=== PATIENT | female | born 1940 | race Caucasian/White ===

== ENCOUNTER 2016-10-16 00:30 | Emergency (ER) | payer MEDICARE ==
[2016-10-16] MEDS ORDERED: MORPHINE 2 MG/ML 1ML SYRINGE As Ordered ONE (01:13)
--- NOTE | 2016-10-16 02:20 | REPUSA ---
CLINICAL HISTORY: Head trauma. TECHNIQUE: Multiple axial brain CT scan sections were obtained from base to vertex without contrast a dministration. COMMENTS: There is no evidence of skull fracture. The study shows normal configuration of sella turcica. There are no intra or extra-axial collections. There is no mass effect or midline shift. There is no evidence of hematoma formation. No hydrocephal us is present. No abnormal calcifications are noted. No significant abnormalities are seen either in the posterior fossa or supratentorial compartment. Air-fluid levels in the maxillary sinuses. Bilateral subcutaneous emphysema of the vertex. IMPRESSION: No evidence of acute intracranial pathology. No intracranial hemorrhage or skull fracture. Bilateral subcutaneous emphysema of the vertex. Air-fluid levels in the maxillary sinuses. Thank you for your kind referral of this patient.
--- NOTE | 2016-10-16 02:30 | REPUSA ---
CLINICAL HISTORY: Neck pain. TECHNIQUE: Multiple axial images were obtained through the cervical spine. Images were also reconstru cted in coronal and sagittal planes. The study was performed without IV contrast. COMMENTS: There is no fracture or spondylolisthesis visualized. The paraspinal soft tissues are unremarkable. T here are no lytic or blastic lesions. Straightening of cervical lordosis is seen, suggesting muscular spasm. There is evidence of minimal m ultilevel disk disease, demonstrated by minimal osteophytosis and endplate sclerosis. No significant disk herniation is noted at any level. Canal and foramina remain patent. IMPRESSION: 1. No fracture or spondylolisthesis. 2. Straightening of cervical lordosis is seen, suggesting muscular spasm. 3. Minimal multilevel spondylosis. Thank you for your kind referral of this patient.
--- NOTE | 2016-10-16 02:40 | REPUSA ---
CLINICAL HISTORY: Back pain. TECHNIQUE: Multiple axial images were obtained through the L1-L2, L2-L3, L3-L4, L4-L5 and L5-S1 inter spaces. Images were also reconstructed in coronal and sagittal planes. COMMENTS: There is no fracture visualized. The paraspinal soft tissues are unremarkable. There are no lytic or blastic lesions. Grade 1 anterolisthesis of L4 on L5. There is evidence of multilevel disk disease, demonstrated by osteophytosis ad endplate sclerosis. Evaluation of individual levels reveals the following: At L4-L5 and L5-S1, broad-based disk protrusion in conjunction with hypertrophic facet disease result s in moderate bilateral foraminal narrowing. Canal is mildly stenotic. At L3-L4, broad-based disk bulge, results in mild bilateral foraminal narrowing. Canal is patent. L1-L2 and L2-L3 levels are unremarkable. IMPRESSION: 1. No fracture or spondylolisthesis. 2. At L4-L5 and L5-S1, broad-based disk protrusion in conjunction with hypertrophic facet disease re sults in moderate bilateral foraminal narrowing. . Canal is mildly stenotic. 3. At L3-L4, broad-based disk bulge, results in mild bilateral foraminal narrowing. Canal is patent. Thank you for your kind referral of this patient.
[2016-10-16] MEDS ORDERED: ADACEL/BOOSTRIX VACCINE (DIPHTH/PERTUSS/ACELL/TETANUS)0.5ML SYR (90715) As Ordered ONE (02:41)
[2016-10-16] MEDS ORDERED: MORPHINE 4 MG/ML 1ML SYRINGE As Ordered ONE (03:03)
[2016-10-16] MEDS ORDERED: DERMABOND TOPICAL SKIN ADHESIVE As Ordered ONE ×2 (03:15→03:38)
--- NOTE | 2016-10-16 04:04 | EDDOCDS ---
Nurse's Notes [facility] Name: Francesca Lu Age: 76 yrs Sex: Female : 1940 Arrival Date: 10/16/2016 Time: 00:30 Bed 6 Private MD: Diagnosis: Laceration without foreign body of scalp;Contusion of lower back and pelvis-with hematoma Presentation: 10/16 00:33 Presenting complaint: EMS states: Pt was walking up a set of 3 steps and fell up them js15 and then fell backwards and hit her head on a wooden dresser; laceration to back of head and swelling to right hip; pt awake and alert on EMS arrival; family states that there was no LOC but pt was briefly dazed after fall. Suicide/Homicide risk assessment- the patient denies having any suicidal and/or homicidal ideations and does not present with any other emotional, behavioral or mental health complaints. 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 Transition of care: patient was not received from another setting of care. Care prior to arrival: Saline lock initiated. Glucose check. FSBS 114. 00:33 Acuity: KRISTIAN Level 3 js15 00:33 Method Of Arrival: Ambulance js15 00:40 Adult Sepsis Screening: The patient does not have new or worsening altered mentation. js15 Patient's respiratory rate is less than 22. Systolic blood pressure is greater than 100. Patient has a qSOFA score of 0- Negative Sepsis Screen. Triage Assessment: 00:40 General: Appears in no apparent distress, Behavior is appropriate for age, cooperative. js15 Pain: Location: scalp and back Pain currently is 10 out of 10 on a pain scale. The patient is triaged at the bedside. See Assessment in Nurses Notes section of ED record. Neurological: Level of Consciousness is awake, alert, obeys commands, Oriented to person, place, time. Cardiovascular: Rhythm is regular. Respiratory: Airway is patent Respiratory effort is even, unlabored, Respiratory pattern is regular, symmetrical. Derm: Skin is pink, warm & dry. Bruising that is bright red, on right scapular area and right subscapular area. Musculoskeletal: Reports pain in back. Historical: - Allergies: Compazine; halscion; - Home Meds: 1. Prozac 20 mg Oral cap 1 cap once daily 2. lorazepam 0.5 mg Oral tab 1 tab 3 times per day 3. eszopiclone 3 mg oral tab 1 tab once daily 4. lovastatin 40 mg Oral tab 1 tab once daily 5. omeprazole 20 mg Oral cpDR 1 cap 2 times per day 6. Synthroid 88 mcg Oral tab 1 tab once daily 7. breo ellipta inhaler Unknown daily 8. spironolactone 100 mg Oral tab 1 tab 2 times per day 9. montelukast 10 mg oral tab 1 tab once daily 10. Senokot 8.6 mg Oral tab 1 tabs twice daily - PMHx: Hypothyroidism; GERD; High Cholesterol; Anxiety; Depression; Migraines; - PSHx: Tubal ligation; Hysterectomy; Bunion Surgery; - Social history: Smoking status: Patient states former smoker of tobacco. No barriers to communication noted, The patient speaks fluent Sami, Speaks appropriately for age. - Family history: Not pertinent. - : The pt / caregiver states he / she is not on anticoagulants. Home medication list is obtained from the patient. - Exposure Risk Screening:: None identified. Screenin:45 Screening information is obtained from the patient. Fall risk: At risk due to prior 15 history of falls, The following interventions are performed due to a positive Fall Risk Screen: side rails upx2, bed in low position, call light in reach, family at bedside. Assistance ADL's: requires no assistance with activities of daily living. Abuse/DV Screen: The patient / caregiver reports he/she is: not in a situation that causes fear, pain or injury. Nutritional screening: No deficits noted. Advance Directives: There is no active DNR order. home support is adequate. Assessment: 00:40 General: see triage note. js15 01:40 Reassessment: Patient appears in no apparent distress at this time. Patient states js15 feeling better. Pt resting on stretcher, reports improvement in pain, 4/10; respirations even and unlabored; skin pink, warm, dry. 02:40 Reassessment: Patient appears in no apparent distress at this time. Pt resting on js15 stretcher talking with at bedside; respirations even and unlabored; reports pain in back 9/10; provider notified. 03:30 General: Appears in no apparent distress, comfortable, Behavior is appropriate for age, js15 cooperative. Pain: Location: back. Neurological: Level of Consciousness is awake, alert, obeys commands, Oriented to person, place, time. Respiratory: Airway is patent Respiratory effort is even, unlabored, Respiratory pattern is regular, symmetrical. Derm: Skin is pink, warm & dry. Vital Signs: 00:37 BP 132 / 65; Pulse 107; Resp 18 S; Temp 98.4(O); Pulse Ox 91% on R/A; Weight 45.36 kg; ajs Height 5 ft. 0 in. (152.40 cm); Pain 10/10; 00:45 BP 129 / 61 (auto/); js15 00:46 Pulse 105 MON; Pulse Ox 92% ; js15 01:00 BP 139 / 64 (auto/); js15 01:01 Pulse 104 MON; Pulse Ox 94% ; js15 01:15 BP 123 / 63 (auto/); js15 01:16 Pulse 103 MON; Pulse Ox 92% ; js15 01:30 BP 133 / 62 (auto/); js15 01:31 Pulse 103 MON; Pulse Ox 91% ; js15 02:01 BP 117 / 69 (auto/); js15 02:03 Pulse 100 MON; Pulse Ox 93% ; js15 02:16 BP 130 / 67 (auto/); js15 02:16 Pulse 98 MON; Pulse Ox 92% ; js15 02:31 BP 128 / 69 (auto/); js15 02:31 Pulse 100 MON; Pulse Ox 93% ; js15 02:46 BP 123 / 65 (auto/); js15 02:46 Pulse 100 MON; Pulse Ox 92% ; js15 03:01 BP 116 / 64 (auto/); js15 03:01 Pulse 96 MON; Pulse Ox 92% ; js15 03:16 BP 132 / 67 (auto/); js15 03:16 Pulse 96 MON; Pulse Ox 92% ; js15 03:31 BP 119 / 64 (auto/); js15 03:31 Pulse 96 MON; Pulse Ox 92% ; js15 03:43 Pulse 98 MON; Resp 20; Temp 97.9; Pulse Ox 92% on R/A; Pain 4/10; js15 03:46 BP 127 / 66 (auto/); js15 00:37 Body Mass Index 19.53 (45.36 kg, 152.40 cm) [facility] Vitals: 00:40 Log In Time N/A - ambulance arrival. js15 ED Course: 00:32 Patient visited by Brisa Buenrostro, Log Check Scaler. ml3 00:32 Vladimir Salazar DO is Attending Physician. cs11 00:32 Patient moved to Waiting ml3 00:32 Patient moved to 1 ml3 00:33 Patient visited by Vladimir Salazar DO. cs11 00:36 Triage Initiated js15 00:45 Maintain field IV. Dressing intact. Good blood return noted. Site clean & dry. Gauge & js15 site: 18 g R hand. 01:00 The patient / caregiver is instructed regarding the plan of care and ED course. js15 01:08 Patient visited by Antonia Baig,ABDIRIZAK. js15 01:53 [facility] Payment Agreement was scanned into [employer] and attached to record. [facility] 01:59 Patient moved to 6 js15 02:22 Patient visited by Antonia Baig RN. js15 02:22 CT Head Without Contrast Returned. EDMS 02:54 CT Spine,Cervical W/o Contrast Returned. EDMS 02:54 CT Spine, Lumbar W/o Contrast Returned. EDMS 03:15 Assist provider with laceration repair using Dermabond. Performed by Vladimir Salazar DO js15 Set up tray. Patient tolerated well. 03:24 Patient visited by Antnoia Baig RN. 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 Exp: 11/30/2018. Lot #: [id number]. } Route: IM; Site: left deltoid; 03:10 Drug: morphine 4 mg [morphine 4 mg/mL intravenous cartridge (1 mL)] Route: IVP; Site: [facility] right hand; Order Results: Radiology Order: CT Head Without Contrast Test: CT Head Without Contrast REASON FOR EXAMINATION: Trauma; ; CLINICAL HISTORY: Head trauma.; TECHNIQUE: Multiple axial brain CT scan sections were obtained from base to vertex without contrast a; dministration.; COMMENTS:; There is no evidence of skull fracture.; The study shows normal configuration of sella turcica. There are no intra or extra-axial collections.; There is no mass effect or midline shift. There is no evidence of hematoma formation. No hydrocephal; us is present. No abnormal calcifications are noted.; No significant abnormalities are seen either in the posterior fossa or supratentorial compartment.; Air-fluid levels in the maxillary sinuses.; Bilateral subcutaneous emphysema of the vertex.; IMPRESSION:; No evidence of acute intracranial pathology. No intracranial hemorrhage or skull fracture.; Bilateral subcutaneous emphysema of the vertex.; Air-fluid levels in the maxillary sinuses.; Thank you for your kind referral of this patient.; ; Radiology Order: CT Spine,Cervical W/o Contrast Test: CT Spine,Cervical W/o Contrast REASON FOR EXAMINATION: Trauma; ; CLINICAL HISTORY: Neck pain.; TECHNIQUE: Multiple axial images were obtained through the cervical spine. Images were also reconstru; cted in coronal and sagittal planes. The study was performed without IV contrast.; COMMENTS:; There is no fracture or spondylolisthesis visualized. The paraspinal soft tissues are unremarkable. T; here are no lytic or blastic lesions.; Straightening of cervical lordosis is seen, suggesting muscular spasm. There is evidence of minimal m; ultilevel disk disease, demonstrated by minimal osteophytosis and endplate sclerosis.; No significant disk herniation is noted at any level. Canal and foramina remain patent.; IMPRESSION:; 1. No fracture or spondylolisthesis.; 2. Straightening of cervical lordosis is seen, suggesting muscular spasm.; 3. Minimal multilevel spondylosis.; Thank you for your kind referral of this patient.; ; Radiology Order: CT Spine, Lumbar W/o Contrast Test: CT Spine, Lumbar W/o Contrast REASON FOR EXAMINATION: Trauma; ; CLINICAL HISTORY: Back pain.; TECHNIQUE: Multiple axial images were obtained through the L1-L2, L2-L3, L3-L4, L4-L5 and L5-S1 inter; spaces. Images were also reconstructed in coronal and sagittal planes.; COMMENTS:; There is no fracture visualized. The paraspinal soft tissues are unremarkable. There are no lytic or; blastic lesions. Grade 1 anterolisthesis of L4 on L5.; There is evidence of multilevel disk disease, demonstrated by osteophytosis ad endplate sclerosis.; Evaluation of individual levels reveals the following:; At L4-L5 and L5-S1, broad-based disk protrusion in conjunction with hypertrophic facet disease result; s in moderate bilateral foraminal narrowing. Canal is mildly stenotic.; At L3-L4, broad-based disk bulge, results in mild bilateral foraminal narrowing. Canal is patent.; L1-L2 and L2-L3 levels are unremarkable.; IMPRESSION:; 1. No fracture or spondylolisthesis.; 2. At L4-L5 and L5-S1, broad-based disk protrusion in conjunction with hypertrophic facet disease re; sults in moderate bilateral foraminal narrowing. . Canal is mildly stenotic.; 3. At L3-L4, broad-based disk bulge, results in mild bilateral foraminal narrowing. Canal is patent.; Thank you for your kind referral of this patient.; ; Outcome: 03:30 Discharge ordered by Provider. cs11 03:35 CT Study completed. js15 04:03 Discharge Assessment: Patient awake, alert and oriented x 3. No cognitive and/or js15 functional deficits noted. Patient verbalized understanding of disposition instructions. patient administered narcotics - yes. Pt provided with safe discharge. The following High Risk Discharge criteria are identified: None. Discharged to home via wheelchair, with significant other. Condition: stable. Discharge instructions given to patient, significant other, Instructed on discharge instructions, follow up and referral plans. medication usage, no driving heavy equipment, wound care, Demonstrated understanding of instructions, medications, wound care Pt was receptive of discharge instructions/ teaching. Prescriptions given X 1. Property :Personal belongings accompany Pt. 04:03 Patient left the ED. js15 Signatures: Dispatcher [employer] EDMS Brisa Buenrostro, Log Check Scaler Unit ml3 Cherise Allen Craig, DO DO cs11 Mary Ellen Hwang RN RN ko2 Ami Santos Julia,RN RN js15 RIYA
--- NOTE | 2016-10-16 04:04 | EDDOCDS ---
Physician Documentation [facility] Name: Francesca Lu Age: 76 yrs Sex: Female : 1940 Arrival Date: 10/16/2016 Time: 00:30 Bed 6 Private MD: Disposition: 10/16/16 03:30 Discharged to Home/Self Care. Impression: Laceration without foreign body of scalp, Contusion of lower back and pelvis - with hematoma. - Condition is Stable. - Discharge Instructions: Stitches, [place], or Adhesive Wound Closure. - Prescriptions for Tramadol 50 mg Oral Tablet - take 1 tablet by ORAL route 4 times per day As needed MDD: 4 tabs; 20 tablet. - Medication Reconciliation, Local Pharmacy Hours form. - Follow up: Private Physician; When: Call to arrange an appointment; Reason: Recheck today's complaints. - Problem is new. - Symptoms have improved. Historical: - Allergies: Compazine; halscion; - Home Meds: 1. Prozac 20 mg Oral cap 1 cap once daily 2. lorazepam 0.5 mg Oral tab 1 tab 3 times per day 3. eszopiclone 3 mg oral tab 1 tab once daily 4. lovastatin 40 mg Oral tab 1 tab once daily 5. omeprazole 20 mg Oral cpDR 1 cap 2 times per day 6. Synthroid 88 mcg Oral tab 1 tab once daily 7. breo ellipta inhaler Unknown daily 8. spironolactone 100 mg Oral tab 1 tab 2 times per day 9. montelukast 10 mg oral tab 1 tab once daily 10. Senokot 8.6 mg Oral tab 1 tabs twice daily - PMHx: Hypothyroidism; GERD; High Cholesterol; Anxiety; Depression; Migraines; - PSHx: Tubal ligation; Hysterectomy; Bunion Surgery; - Social history: Smoking status: Patient states former smoker of tobacco. No barriers to communication noted, The patient speaks fluent Upper Sorbian, Speaks appropriately for age. - Family history: Not pertinent. - : The pt / caregiver states he / she is not on anticoagulants. Home medication list is obtained from the patient. - Exposure Risk Screening:: None identified. Vital Signs: 10/16 00:37 BP 132 / 65; Pulse 107; Resp 18 S; Temp 98.4(O); Pulse Ox 91% on R/A; Weight 45.36 kg / ajs 100 lbs; Height 5 ft. 0 in. (152.40 cm); Pain 10/10; 00:45 BP 129 / 61 (auto/); js15 00:46 Pulse 105 MON; Pulse Ox 92% ; js15 01:00 BP 139 / 64 (auto/); js15 01:01 Pulse 104 MON; Pulse Ox 94% ; js15 01:15 BP 123 / 63 (auto/); js15 01:16 Pulse 103 MON; Pulse Ox 92% ; js15 01:30 BP 133 / 62 (auto/); js15 01:31 Pulse 103 MON; Pulse Ox 91% ; js15 02:01 BP 117 / 69 (auto/); js15 02:03 Pulse 100 MON; Pulse Ox 93% ; js15 02:16 BP 130 / 67 (auto/); js15 02:16 Pulse 98 MON; Pulse Ox 92% ; js15 02:31 BP 128 / 69 (auto/); js15 02:31 Pulse 100 MON; Pulse Ox 93% ; js15 02:46 BP 123 / 65 (auto/); js15 02:46 Pulse 100 MON; Pulse Ox 92% ; js15 03:01 BP 116 / 64 (auto/); js15 03:01 Pulse 96 MON; Pulse Ox 92% ; js15 03:16 BP 132 / 67 (auto/); js15 03:16 Pulse 96 MON; Pulse Ox 92% ; js15 03:31 BP 119 / 64 (auto/); js15 03:31 Pulse 96 MON; Pulse Ox 92% ; js15 03:43 Pulse 98 MON; Resp 20; Temp 97.9; Pulse Ox 92% on R/A; Pain 4/10; js15 03:46 BP 127 / 66 (auto/); js15 00:37 Body Mass Index 19.53 (45.36 kg, 152.40 cm) [facility] Procedures: 03:31 Laceration repair:. cs11 Laceration: 03:31 Wound Repair of 2.0cm ( 0.8in ) full thickness laceration to scalp. Distal cs11 neuro/vascular/tendon intact. Wound prep: Moderate cleansing with hibiclenz by provider. Skin closed with thin layer Dermabond using Running sutures. Patient tolerated well. MDM: 00:34 CT Head Without Contrast Ordered. EDMS 00:54 CT Spine,Cervical W/o Contrast Ordered. EDMS 01:05 morphine 2 mg IVP once ordered. cs11 01:06 CT Spine, Lumbar W/o Contrast Ordered. EDMS 01:24 Tetanus- Diptheria-Acellular Pertussis 0.5 ml IM once; Routine booster 10-64yrs, >64 cs11 with child contact Ewing Omnicell ordered. 01:32 Financial registration complete. [facility] 01:32 Chest, 1 View Ordered. EDMS 01:53 [facility] Payment Agreement was scanned into [employer] and attached to record. [facility] 03:03 morphine 4 mg IVP once ordered. cs11 Administered Medications: 01:17 Drug: morphine 2 mg [morphine 2 mg/mL intravenous cartridge (1 mL)] Route: IVP; Site: js15 right hand; 02:00 Follow up: Response: Confirmed pt not driving.; Pain is decreased 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 Exp: 11/30/2018. Lot #: [id number]. } Route: IM; Site: left deltoid; 03:10 Drug: morphine 4 mg [morphine 4 mg/mL intravenous cartridge (1 mL)] Route: IVP; Site: [facility] right hand; Signatures: [facility] Vladimir Salazar DO DO 11 Mary Ellen HwangRN RN Ami Campbell [facility] Antonia Baig,ABDIRIZAK RN 15 The chart was reviewed and I authenticate all verbal orders and agree with the evaluation and treatment provided.Corrections: (The following items were deleted from the chart) 01:02 00:34 CT Neck without contrast+CT ordered. EDMS EDMS Attachments: 01:53 [facility] Payment Agreement [facility] MTDD
--- NOTE | 2016-10-16 09:24 | REP ---
Chest x-ray: Single view. History: Trauma. Comparison study July 09, 2013. Findings: EKG monitoring electrodes overlie the chest. Heart is not enlarged and is unchanged. The aorta is somewhat tortuous. Pleural angles are sharp. Pulmonary vasculature is not increased. No significant bony abnormality is seen. Impression: No active disease. Signed by Sarkis Dejesus MD 10/16/2016 02:25 P
--- NOTE | 2016-10-18 05:04 | EDDOCDS ---
Nurse's Notes [facility] Name: Francesca Lu Age: 76 yrs Sex: Female : 1940 Arrival Date: 10/16/2016 Time: 00:30 Bed 6 Private MD: Diagnosis: Laceration without foreign body of scalp;Contusion of lower back and pelvis-with hematoma Presentation: 10/16 00:33 Presenting complaint: EMS states: Pt was walking up a set of 3 steps and fell up them js15 and then fell backwards and hit her head on a wooden dresser; laceration to back of head and swelling to right hip; pt awake and alert on EMS arrival; family states that there was no LOC but pt was briefly dazed after fall. Suicide/Homicide risk assessment- the patient denies having any suicidal and/or homicidal ideations and does not present with any other emotional, behavioral or mental health complaints. 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 Transition of care: patient was not received from another setting of care. Care prior to arrival: Saline lock initiated. Glucose check. FSBS 114. 00:33 Acuity: KRISTIAN Level 3 js15 00:33 Method Of Arrival: Ambulance js15 00:40 Adult Sepsis Screening: The patient does not have new or worsening altered mentation. js15 Patient's respiratory rate is less than 22. Systolic blood pressure is greater than 100. Patient has a qSOFA score of 0- Negative Sepsis Screen. Triage Assessment: 00:40 General: Appears in no apparent distress, Behavior is appropriate for age, cooperative. js15 Pain: Location: scalp and back Pain currently is 10 out of 10 on a pain scale. The patient is triaged at the bedside. See Assessment in Nurses Notes section of ED record. Neurological: Level of Consciousness is awake, alert, obeys commands, Oriented to person, place, time. Cardiovascular: Rhythm is regular. Respiratory: Airway is patent Respiratory effort is even, unlabored, Respiratory pattern is regular, symmetrical. Derm: Skin is pink, warm & dry. Bruising that is bright red, on right scapular area and right subscapular area. Musculoskeletal: Reports pain in back. Historical: - Allergies: Compazine; halscion; - Home Meds: 1. Prozac 20 mg Oral cap 1 cap once daily 2. lorazepam 0.5 mg Oral tab 1 tab 3 times per day 3. eszopiclone 3 mg oral tab 1 tab once daily 4. lovastatin 40 mg Oral tab 1 tab once daily 5. omeprazole 20 mg Oral cpDR 1 cap 2 times per day 6. Synthroid 88 mcg Oral tab 1 tab once daily 7. breo ellipta inhaler Unknown daily 8. spironolactone 100 mg Oral tab 1 tab 2 times per day 9. montelukast 10 mg oral tab 1 tab once daily 10. Senokot 8.6 mg Oral tab 1 tabs twice daily - PMHx: Hypothyroidism; GERD; High Cholesterol; Anxiety; Depression; Migraines; - PSHx: Tubal ligation; Hysterectomy; Bunion Surgery; - Social history: Smoking status: Patient states former smoker of tobacco. No barriers to communication noted, The patient speaks fluent Slovak, Speaks appropriately for age. - Family history: Not pertinent. - : The pt / caregiver states he / she is not on anticoagulants. Home medication list is obtained from the patient. - Exposure Risk Screening:: None identified. Screenin:45 Screening information is obtained from the patient. Fall risk: At risk due to prior 15 history of falls, The following interventions are performed due to a positive Fall Risk Screen: side rails upx2, bed in low position, call light in reach, family at bedside. Assistance ADL's: requires no assistance with activities of daily living. Abuse/DV Screen: The patient / caregiver reports he/she is: not in a situation that causes fear, pain or injury. Nutritional screening: No deficits noted. Advance Directives: There is no active DNR order. home support is adequate. Assessment: 00:40 General: see triage note. js15 01:40 Reassessment: Patient appears in no apparent distress at this time. Patient states js15 feeling better. Pt resting on stretcher, reports improvement in pain, 4/10; respirations even and unlabored; skin pink, warm, dry. 02:40 Reassessment: Patient appears in no apparent distress at this time. Pt resting on js15 stretcher talking with at bedside; respirations even and unlabored; reports pain in back 9/10; provider notified. 03:30 General: Appears in no apparent distress, comfortable, Behavior is appropriate for age, js15 cooperative. Pain: Location: back. Neurological: Level of Consciousness is awake, alert, obeys commands, Oriented to person, place, time. Respiratory: Airway is patent Respiratory effort is even, unlabored, Respiratory pattern is regular, symmetrical. Derm: Skin is pink, warm & dry. Vital Signs: 00:37 BP 132 / 65; Pulse 107; Resp 18 S; Temp 98.4(O); Pulse Ox 91% on R/A; Weight 45.36 kg; ajs Height 5 ft. 0 in. (152.40 cm); Pain 10/10; 00:45 BP 129 / 61 (auto/); js15 00:46 Pulse 105 MON; Pulse Ox 92% ; js15 01:00 BP 139 / 64 (auto/); js15 01:01 Pulse 104 MON; Pulse Ox 94% ; js15 01:15 BP 123 / 63 (auto/); js15 01:16 Pulse 103 MON; Pulse Ox 92% ; js15 01:30 BP 133 / 62 (auto/); js15 01:31 Pulse 103 MON; Pulse Ox 91% ; js15 02:01 BP 117 / 69 (auto/); js15 02:03 Pulse 100 MON; Pulse Ox 93% ; js15 02:16 BP 130 / 67 (auto/); js15 02:16 Pulse 98 MON; Pulse Ox 92% ; js15 02:31 BP 128 / 69 (auto/); js15 02:31 Pulse 100 MON; Pulse Ox 93% ; js15 02:46 BP 123 / 65 (auto/); js15 02:46 Pulse 100 MON; Pulse Ox 92% ; js15 03:01 BP 116 / 64 (auto/); js15 03:01 Pulse 96 MON; Pulse Ox 92% ; js15 03:16 BP 132 / 67 (auto/); js15 03:16 Pulse 96 MON; Pulse Ox 92% ; js15 03:31 BP 119 / 64 (auto/); js15 03:31 Pulse 96 MON; Pulse Ox 92% ; js15 03:43 Pulse 98 MON; Resp 20; Temp 97.9; Pulse Ox 92% on R/A; Pain 4/10; js15 03:46 BP 127 / 66 (auto/); js15 00:37 Body Mass Index 19.53 (45.36 kg, 152.40 cm) [facility] Vitals: 00:40 Log In Time N/A - ambulance arrival. js15 ED Course: 00:32 Patient visited by Brisa Buenrostro, Cold Working Supervisor. ml3 00:32 Vladimir Salazar DO is Attending Physician. cs11 00:32 Patient moved to Waiting ml3 00:32 Patient moved to 1 ml3 00:33 Patient visited by Vladimir Salazar DO. cs11 00:36 Triage Initiated js15 00:45 Maintain field IV. Dressing intact. Good blood return noted. Site clean & dry. Gauge & js15 site: 18 g R hand. 01:00 The patient / caregiver is instructed regarding the plan of care and ED course. js15 01:08 Patient visited by Antonia Baig,ABDIRIZAK. js15 01:53 [facility] Payment Agreement was scanned into [employer] and attached to record. [facility] 01:59 Patient moved to 6 js15 02:22 Patient visited by Antonia Baig,ABDIRIZAK. js15 02:22 CT Head Without Contrast Returned. EDMS 02:54 CT Spine,Cervical W/o Contrast Returned. EDMS 02:54 CT Spine, Lumbar W/o Contrast Returned. EDMS 03:15 Assist provider with laceration repair using Dermabond. Performed by Vladimir Salazar DO js15 Set up tray. Patient tolerated well. 03:24 Patient visited by Antonia Baig RN. js15 09:32 Chest, 1 View Returned. EDMS 14:06 T-Sheet-- Draft Copy was scanned into [employer] and attached to record. gb 14:06 Rhythm Strip was scanned into [employer] and attached to record. gb 14:07 PCR was scanned into [employer] and attached to record. gb Administered Medications: 01:17 Drug: morphine 2 mg [morphine 2 mg/mL intravenous cartridge (1 mL)] Route: IVP; Site: js15 right hand; 02:00 Follow up: Response: Confirmed pt not driving.; Pain is decreased js15 02:45 Drug: Tetanus- Diptheria-Acellular Pertussis 0.5 ml [diphth,pertussis(acel),tetanus 2.5 js15 Lf unit-8 mcg-5 Lf/0.5mL IM syringe (0.5 mL)] {Plant Technician/Control Room Operator: [employer] Exp: 11/30/2018. Lot #: [id number]. } Route: IM; Site: left deltoid; 03:10 Drug: morphine 4 mg [morphine 4 mg/mL intravenous cartridge (1 mL)] Route: IVP; Site: js15 right hand; Attachments: 14:06 Rhythm Strip gb Order Results: Radiology Order: CT Head Without Contrast Test: CT Head Without Contrast REASON FOR EXAMINATION: Trauma; ; CLINICAL HISTORY: Head trauma.; TECHNIQUE: Multiple axial brain CT scan sections were obtained from base to vertex without contrast a; dministration.; COMMENTS:; There is no evidence of skull fracture.; The study shows normal configuration of sella turcica. There are no intra or extra-axial collections.; There is no mass effect or midline shift. There is no evidence of hematoma formation. No hydrocephal; us is present. No abnormal calcifications are noted.; No significant abnormalities are seen either in the posterior fossa or supratentorial compartment.; Air-fluid levels in the maxillary sinuses.; Bilateral subcutaneous emphysema of the vertex.; IMPRESSION:; No evidence of acute intracranial pathology. No intracranial hemorrhage or skull fracture.; Bilateral subcutaneous emphysema of the vertex.; Air-fluid levels in the maxillary sinuses.; Thank you for your kind referral of this patient.; ; Radiology Order: CT Spine,Cervical W/o Contrast Test: CT Spine,Cervical W/o Contrast REASON FOR EXAMINATION: Trauma; ; CLINICAL HISTORY: Neck pain.; TECHNIQUE: Multiple axial images were obtained through the cervical spine. Images were also reconstru; cted in coronal and sagittal planes. The study was performed without IV contrast.; COMMENTS:; There is no fracture or spondylolisthesis visualized. The paraspinal soft tissues are unremarkable. T; here are no lytic or blastic lesions.; Straightening of cervical lordosis is seen, suggesting muscular spasm. There is evidence of minimal m; ultilevel disk disease, demonstrated by minimal osteophytosis and endplate sclerosis.; No significant disk herniation is noted at any level. Canal and foramina remain patent.; IMPRESSION:; 1. No fracture or spondylolisthesis.; 2. Straightening of cervical lordosis is seen, suggesting muscular spasm.; 3. Minimal multilevel spondylosis.; Thank you for your kind referral of this patient.; ; Radiology Order: CT Spine, Lumbar W/o Contrast Test: CT Spine, Lumbar W/o Contrast REASON FOR EXAMINATION: Trauma; ; CLINICAL HISTORY: Back pain.; TECHNIQUE: Multiple axial images were obtained through the L1-L2, L2-L3, L3-L4, L4-L5 and L5-S1 inter; spaces. Images were also reconstructed in coronal and sagittal planes.; COMMENTS:; There is no fracture visualized. The paraspinal soft tissues are unremarkable. There are no lytic or; blastic lesions. Grade 1 anterolisthesis of L4 on L5.; There is evidence of multilevel disk disease, demonstrated by osteophytosis ad endplate sclerosis.; Evaluation of individual levels reveals the following:; At L4-L5 and L5-S1, broad-based disk protrusion in conjunction with hypertrophic facet disease result; s in moderate bilateral foraminal narrowing. Canal is mildly stenotic.; At L3-L4, broad-based disk bulge, results in mild bilateral foraminal narrowing. Canal is patent.; L1-L2 and L2-L3 levels are unremarkable.; IMPRESSION:; 1. No fracture or spondylolisthesis.; 2. At L4-L5 and L5-S1, broad-based disk protrusion in conjunction with hypertrophic facet disease re; sults in moderate bilateral foraminal narrowing. . Canal is mildly stenotic.; 3. At L3-L4, broad-based disk bulge, results in mild bilateral foraminal narrowing. Canal is patent.; Thank you for your kind referral of this patient.; ; Radiology Order: Chest, 1 View Test: Chest, 1 View REASON FOR EXAMINATION: Trauma; Chest x-ray: Single view.; ; History: Trauma.; ; Comparison study July 09, 2013.; ; Findings: EKG monitoring electrodes overlie the chest. Heart is not enlarged; and is unchanged. The aorta is somewhat tortuous. Pleural angles are sharp.; Pulmonary vasculature is not increased. No significant bony abnormality is; seen.; ; Impression:; ; No active disease.; ; ; Signed by; Sarkis Dejesus MD 10/16/2016 02:25 P; Outcome: 03:30 Discharge ordered by Provider. cs11 03:35 CT Study completed. js15 04:03 Discharge Assessment: Patient awake, alert and oriented x 3. No cognitive and/or js15 functional deficits noted. Patient verbalized understanding of disposition instructions. patient administered narcotics - yes. Pt provided with safe discharge. The following High Risk Discharge criteria are identified: None. Discharged to home via wheelchair, with significant other. Condition: stable. Discharge instructions given to patient, significant other, Instructed on discharge instructions, follow up and referral plans. medication usage, no driving heavy equipment, wound care, Demonstrated understanding of instructions, medications, wound care Pt was receptive of discharge instructions/ teaching. Prescriptions given X 1. Property :Personal belongings accompany Pt. 04:03 Patient left the ED. js15 Signatures: Dispatcher [employer] EDMS Svetlana Dougherty, Palomo Reg Brisa Zhang, Cold Working Supervisor Unit ml3 Cherise Allen Craig, DO cs11 Mary Ellen Hwang,RN RN ko2 Ami Santos Julia,RN RN js15 Chart Complete RIYA
--- NOTE | 2016-10-18 05:04 | EDDOCDS ---
Physician Documentation Name: Francesca Lu Age: 76 yrs Sex: Female : 1940 Arrival Date: 10/16/2016 Time: 00:30 Bed 6 Private MD: Disposition: 10/16/16 03:30 Discharged to Home/Self Care. Impression: Laceration without foreign body of scalp, Contusion of lower back and pelvis - with hematoma. - Condition is Stable. - Discharge Instructions: Stitches, [place]pi[place], or Adhesive Wound Closure. - Prescriptions for Tramadol 50 mg Oral Tablet - take 1 tablet by ORAL route 4 times per day As needed MDD: 4 tabs; 20 tablet. - Medication Reconciliation, Local Pharmacy Hours form. - Follow up: Private Physician; When: Call to arrange an appointment; Reason: Recheck today's complaints. - Problem is new. - Symptoms have improved. Historical: - Allergies: Compazine; halscion; - Home Meds: 1. Prozac 20 mg Oral cap 1 cap once daily 2. lorazepam 0.5 mg Oral tab 1 tab 3 times per day 3. eszopiclone 3 mg oral tab 1 tab once daily 4. lovastatin 40 mg Oral tab 1 tab once daily 5. omeprazole 20 mg Oral cpDR 1 cap 2 times per day 6. Synthroid 88 mcg Oral tab 1 tab once daily 7. breo ellipta inhaler Unknown daily 8. spironolactone 100 mg Oral tab 1 tab 2 times per day 9. montelukast 10 mg oral tab 1 tab once daily 10. Senokot 8.6 mg Oral tab 1 tabs twice daily - PMHx: Hypothyroidism; GERD; High Cholesterol; Anxiety; Depression; Migraines; - PSHx: Tubal ligation; Hysterectomy; Bunion Surgery; - Social history: Smoking status: Patient states former smoker of tobacco. No barriers to communication noted, The patient speaks fluent Wolof, Speaks appropriately for age. - Family history: Not pertinent. - : The pt / caregiver states he / she is not on anticoagulants. Home medication list is obtained from the patient. - Exposure Risk Screening:: None identified. Vital Signs: 10/16 00:37 BP 132 / 65; Pulse 107; Resp 18 S; Temp 98.4(O); Pulse Ox 91% on R/A; Weight 45.36 kg / ajs 100 lbs; Height 5 ft. 0 in. (152.40 cm); Pain 10/10; 00:45 BP 129 / 61 (auto/); js15 00:46 Pulse 105 MON; Pulse Ox 92% ; js15 01:00 BP 139 / 64 (auto/); js15 01:01 Pulse 104 MON; Pulse Ox 94% ; js15 01:15 BP 123 / 63 (auto/); js15 01:16 Pulse 103 MON; Pulse Ox 92% ; js15 01:30 BP 133 / 62 (auto/); js15 01:31 Pulse 103 MON; Pulse Ox 91% ; js15 02:01 BP 117 / 69 (auto/); js15 02:03 Pulse 100 MON; Pulse Ox 93% ; js15 02:16 BP 130 / 67 (auto/); js15 02:16 Pulse 98 MON; Pulse Ox 92% ; js15 02:31 BP 128 / 69 (auto/); js15 02:31 Pulse 100 MON; Pulse Ox 93% ; js15 02:46 BP 123 / 65 (auto/); js15 02:46 Pulse 100 MON; Pulse Ox 92% ; js15 03:01 BP 116 / 64 (auto/); js15 03:01 Pulse 96 MON; Pulse Ox 92% ; js15 03:16 BP 132 / 67 (auto/); js15 03:16 Pulse 96 MON; Pulse Ox 92% ; js15 03:31 BP 119 / 64 (auto/); js15 03:31 Pulse 96 MON; Pulse Ox 92% ; js15 03:43 Pulse 98 MON; Resp 20; Temp 97.9; Pulse Ox 92% on R/A; Pain 4/10; js15 03:46 BP 127 / 66 (auto/); js15 00:37 Body Mass Index 19.53 (45.36 kg, 152.40 cm) [facility] Procedures: 03:31 Laceration repair:. cs11 Laceration: 03:31 Wound Repair of 2.0cm ( 0.8in ) full thickness laceration to scalp. Distal cs11 neuro/vascular/tendon intact. Wound prep: Moderate cleansing with hibiclenz by provider. Skin closed with thin layer Dermabond using Running sutures. Patient tolerated well. MDM: 00:34 CT Head Without Contrast Ordered. EDMS 00:54 CT Spine,Cervical W/o Contrast Ordered. EDMS 01:05 morphine 2 mg IVP once ordered. 11 01:06 CT Spine, Lumbar W/o Contrast Ordered. EDMS 01:24 Tetanus- Diptheria-Acellular Pertussis 0.5 ml IM once; Routine booster 10-64yrs, >64 cs11 with child contact [employer] ordered. 01:32 Financial registration complete. [facility] 01:32 Chest, 1 View Ordered. EDMS 01:53 [facility] Payment Agreement was scanned into [employer] and attached to record. [facility] 03:03 morphine 4 mg IVP once ordered. [facility] 14:06 T-Sheet-- Draft Copy was scanned into [employer] and attached to record. 14:06 Rhythm Strip was scanned into [employer] and attached to record. 14:07 PCR was scanned into [employer] and attached to record. gb Administered Medications: 01:17 Drug: morphine 2 mg [morphine 2 mg/mL intravenous cartridge (1 mL)] Route: IVP; Site: 15 right hand; 02:00 Follow up: Response: Confirmed pt not driving.; Pain is decreased [facility] 02:45 Drug: Tetanus- Diptheria-Acellular Pertussis 0.5 ml [diphth,pertussis(acel),tetanus 2.5 js15 Lf unit-8 mcg-5 Lf/0.5mL IM syringe (0.5 mL)] {Customer Technical Services Manager: [employer]. Exp: 11/30/2018. Lot #: [id number]. } Route: IM; Site: left deltoid; 03:10 Drug: morphine 4 mg [morphine 4 mg/mL intravenous cartridge (1 mL)] Route: IVP; Site: js15 right hand; Signatures: Dispatcher [employer] EDMS Svetlana Dougherty, Reg Reg gb Vladimir Salazar DO DO cs11 Mary Ellen HwangRN RN daniel2 Ami Santos [facility] Antonia Baig,RN RN js15 The chart was reviewed and I authenticate all verbal orders and agree with the evaluation and treatment provided.Corrections: (The following items were deleted from the chart) 01:02 00:34 CT Neck without contrast+CT ordered. EDMS EDMS Attachments: 01:53 [facility] Payment Agreement [facility] 14:06 T-Sheet-- Draft Copy gb Chart Complete MTDD
--- NOTE | 2016-10-18 05:04 | EDDOCDS ---
Physician Documentation [facility] Name: Francesca Lu Age: 76 yrs Sex: Female : 1940 Arrival Date: 10/16/2016 Time: 00:30 Bed 6 Private MD: Disposition: 10/16/16 03:30 Discharged to Home/Self Care. Impression: Laceration without foreign body of scalp, Contusion of lower back and pelvis - with hematoma. - Condition is Stable. - Discharge Instructions: Stitches, [place], or Adhesive Wound Closure. - Prescriptions for Tramadol 50 mg Oral Tablet - take 1 tablet by ORAL route 4 times per day As needed MDD: 4 tabs; 20 tablet. - Medication Reconciliation, Local Pharmacy Hours form. - Follow up: Private Physician; When: Call to arrange an appointment; Reason: Recheck today's complaints. - Problem is new. - Symptoms have improved. Historical: - Allergies: Compazine; halscion; - Home Meds: 1. Prozac 20 mg Oral cap 1 cap once daily 2. lorazepam 0.5 mg Oral tab 1 tab 3 times per day 3. eszopiclone 3 mg oral tab 1 tab once daily 4. lovastatin 40 mg Oral tab 1 tab once daily 5. omeprazole 20 mg Oral cpDR 1 cap 2 times per day 6. Synthroid 88 mcg Oral tab 1 tab once daily 7. breo ellipta inhaler Unknown daily 8. spironolactone 100 mg Oral tab 1 tab 2 times per day 9. montelukast 10 mg oral tab 1 tab once daily 10. Senokot 8.6 mg Oral tab 1 tabs twice daily - PMHx: Hypothyroidism; GERD; High Cholesterol; Anxiety; Depression; Migraines; - PSHx: Tubal ligation; Hysterectomy; Bunion Surgery; - Social history: Smoking status: Patient states former smoker of tobacco. No barriers to communication noted, The patient speaks fluent Greenlandic, Speaks appropriately for age. - Family history: Not pertinent. - : The pt / caregiver states he / she is not on anticoagulants. Home medication list is obtained from the patient. - Exposure Risk Screening:: None identified. Vital Signs: 10/16 00:37 BP 132 / 65; Pulse 107; Resp 18 S; Temp 98.4(O); Pulse Ox 91% on R/A; Weight 45.36 kg / ajs 100 lbs; Height 5 ft. 0 in. (152.40 cm); Pain 10/10; 00:45 BP 129 / 61 (auto/); js15 00:46 Pulse 105 MON; Pulse Ox 92% ; js15 01:00 BP 139 / 64 (auto/); js15 01:01 Pulse 104 MON; Pulse Ox 94% ; js15 01:15 BP 123 / 63 (auto/); js15 01:16 Pulse 103 MON; Pulse Ox 92% ; js15 01:30 BP 133 / 62 (auto/); js15 01:31 Pulse 103 MON; Pulse Ox 91% ; js15 02:01 BP 117 / 69 (auto/); js15 02:03 Pulse 100 MON; Pulse Ox 93% ; js15 02:16 BP 130 / 67 (auto/); js15 02:16 Pulse 98 MON; Pulse Ox 92% ; js15 02:31 BP 128 / 69 (auto/); js15 02:31 Pulse 100 MON; Pulse Ox 93% ; js15 02:46 BP 123 / 65 (auto/); js15 02:46 Pulse 100 MON; Pulse Ox 92% ; js15 03:01 BP 116 / 64 (auto/); js15 03:01 Pulse 96 MON; Pulse Ox 92% ; js15 03:16 BP 132 / 67 (auto/); js15 03:16 Pulse 96 MON; Pulse Ox 92% ; js15 03:31 BP 119 / 64 (auto/); js15 03:31 Pulse 96 MON; Pulse Ox 92% ; js15 03:43 Pulse 98 MON; Resp 20; Temp 97.9; Pulse Ox 92% on R/A; Pain 4/10; js15 03:46 BP 127 / 66 (auto/); js15 00:37 Body Mass Index 19.53 (45.36 kg, 152.40 cm) [facility] Procedures: 03:31 Laceration repair:. cs11 Laceration: 03:31 Wound Repair of 2.0cm ( 0.8in ) full thickness laceration to scalp. Distal cs11 neuro/vascular/tendon intact. Wound prep: Moderate cleansing with hibiclenz by provider. Skin closed with thin layer Dermabond using Running sutures. Patient tolerated well. MDM: 00:34 CT Head Without Contrast Ordered. EDMS 00:54 CT Spine,Cervical W/o Contrast Ordered. EDMS 01:05 morphine 2 mg IVP once ordered. 11 01:06 CT Spine, Lumbar W/o Contrast Ordered. EDMS 01:24 Tetanus- Diptheria-Acellular Pertussis 0.5 ml IM once; Routine booster 10-64yrs, >64 cs11 with child contact [employer] ordered. 01:32 Financial registration complete. [facility] 01:32 Chest, 1 View Ordered. EDMS 01:53 [facility] Payment Agreement was scanned into [employer] and attached to record. [facility] 03:03 morphine 4 mg IVP once ordered. [facility] 14:06 T-Sheet-- Draft Copy was scanned into [employer] and attached to record. 14:06 Rhythm Strip was scanned into [employer] and attached to record. 14:07 PCR was scanned into [employer] and attached to record. gb Administered Medications: 01:17 Drug: morphine 2 mg [morphine 2 mg/mL intravenous cartridge (1 mL)] Route: IVP; Site: 15 right hand; 02:00 Follow up: Response: Confirmed pt not driving.; Pain is decreased [facility] 02:45 Drug: Tetanus- Diptheria-Acellular Pertussis 0.5 ml [diphth,pertussis(acel),tetanus 2.5 js15 Lf unit-8 mcg-5 Lf/0.5mL IM syringe (0.5 mL)] {Electro Optics Engineer: [employer]. Exp: 11/30/2018. Lot #: [id number]. } Route: IM; Site: left deltoid; 03:10 Drug: morphine 4 mg [morphine 4 mg/mL intravenous cartridge (1 mL)] Route: IVP; Site: js15 right hand; Signatures: Dispatcher [employer] EDMS Svetlana Dougherty, Reg Reg gb Vladimir Salazar DO DO cs11 Mary Ellen HwangRN RN daniel2 Ami Santos [facility] Antonia Baig,RN RN js15 The chart was reviewed and I authenticate all verbal orders and agree with the evaluation and treatment provided.Corrections: (The following items were deleted from the chart) 01:02 00:34 CT Neck without contrast+CT ordered. EDMS EDMS Attachments: 01:53 [facility] Payment Agreement [facility] 14:06 T-Sheet-- Draft Copy gb Chart Complete MTDD
== END 2016-10-16 04:03 | disposition home or self-care (01) ==
LOC: M ED 00:30
DX: S01.01XA Laceration without foreign body of scalp, initial encounter (principal); S30.0XXA Contusion of lower back and pelvis, initial encounter; W18.00XA Striking against unspecified object with subsequent fall, initial encounter; Y92.019 Unspecified place in single-family (private) house as the place of occurrence of the external cause; Y93.9 Activity, unspecified; Y99.9 Unspecified external cause status; E03.9 Hypothyroidism, unspecified; K21.9 Gastro-esophageal reflux disease without esophagitis; E78.00 Pure hypercholesterolemia, unspecified; F41.9 Anxiety disorder, unspecified; F32.9 Major depressive disorder, single episode, unspecified; G43.909 Migraine, unspecified, not intractable, without status migrainosus; Z87.891 Personal history of nicotine dependence; Z79.899 Other long term (current) drug therapy; Z88.8 Allergy status to other drugs, medicaments and biological substances

== ENCOUNTER → 2016-12-15 | Outpatient (CLI) | payer MEDICARE ==
--- NOTE | 2016-12-15 16:22 | REP ---
CT of the chest without IV contrast: Comparison is a plain film PA and lateral study of the chest dated 07/09/2013. There are no acute infiltrates. There are no pleural effusions. There is minor dependent atelectasis in the posterior sulci with the patient supine on the scanning table. There is a 14 mm nodule at the inferior tip of the right middle lobe medial segment near the pericardium. There are no other nodules or masses. There is mild biapical pleuroparenchymal scarring. There is no mediastinal lymphadenopathy. There is no axillary lymphadenopathy. In the absence of IV contrast the study is insensitive for hilar lymphadenopathy. The unenhanced thoracic aorta is unremarkable. Cardiac size is normal. There is no pericardial effusion. Upper abdomen: The gallbladder is not distended, however, I suspect there are gallbladder calculi. There is no biliary duct dilatation. The pancreas is not optimally demonstrated. The spleen is unremarkable. The adrenals are unremarkable. There are cysts in the upper pole right kidney. Upper pole left kidney is unremarkable. There are calcifications in the splenic hilus. This could be vascular atheromatous calcification or this could be evidence for splenic artery aneurysm. The largest calcification measures 9.3 cm in diameter. Impression: There is a 14 mm nodule inferiorly, medially in the right middle lobe. Follow-up for nodules this size according to Fleischner Society recommendations is follow-up CT at three, nine and 24 months. Consider PET / CT. There are no acute infiltrates or effusions. No adenopathy. Renal cysts in the upper pole of the right kidney. Cholelithiasis. Calcifications in the splenic hilus, possibly splenic artery aneurysm. Signed by Antoni Argueta MD 12/15/2016 04:13 P
== END ==
LOC: M RAD 15:40
PROVIDERS: ATTEND Neurological Surgery
DX: R06.02 Shortness of breath (principal); R05 Cough; R91.1 Solitary pulmonary nodule; N28.1 Cyst of kidney, acquired; K80.20 Calculus of gallbladder without cholecystitis without obstruction; D73.89 Other diseases of spleen

== ENCOUNTER → 2017-01-02 | Outpatient (CLI) | payer MEDICARE ==
--- NOTE | 2017-01-02 14:48 | REPMRS ---
Patient History The patient states she has not had a clinical breast exam in over a year. Patient is postmenopausal. Family history of prostate cancer in father at age 79 and unknown cancer in brother at age 41. Digital Mammo Screening Bilat: January 02, 2017 - Exam #: [id number] Bilateral CC and MLO view(s) were taken. Technologist: Gabriella Fermin, Technologist Prior study comparison: December 22, 2015, bilateral digital mammo screening bilat performed at [facility]. May 26, 2008, digital bilateral screening mammo performed at [facility]. FINDINGS: There are scattered fibroglandular densities. There has been no change in the appearance of the mammogram from the prior studies. There is a mild amount of residual fibroglandular tissue which is fairly symmetric. There is no interval development of dominant mass, architectural distortion, or clustered microcalcification suggestive of malignancy. ASSESSMENT: BI-RADS/ACR category 1 mammogram. Negative. Recommendation Routine screening mammogram in 1 year (for women over age 40). This mammogram was interpreted with the aid of an FDA-approved computer-aided dectection system. Electronically Signed By: Antoni Henriquez MD 01/02/17 [id number]
== END ==
LOC: M RAD 14:04
PROVIDERS: ATTEND Internal Medicine
DX: Z12.31 Encounter for screening mammogram for malignant neoplasm of breast (principal); Z78.0 Asymptomatic menopausal state; Z80.42 Family history of malignant neoplasm of prostate

== ENCOUNTER → 2017-03-07 | Outpatient (CLI) | payer MEDICARE ==
[~2017-03-07] MED LIST: ABIL10TA9; BREO1INH; CALTCHW4 PO; FLUO20CA19; LORA0.5T11; LOVA40TA; MONT10TA2; MULTLIQ7 PO; NATU400T PO; OMEP20CA3; PERC5TAB12 PO; PRIM50TA6; PROBCAP4 PO; ROPI0.5T; SENO8.6T5 PO; SPIR100T; SYNT88TA2; ZOFR4TAB3 PO
--- NOTE | 2017-03-07 15:07 | REP ---
MRI STUDY OF THE BRAIN WITHOUT CONTRAST: HISTORY: Hydrocephalus. COMPARISON STUDY: November 21, 2013 TECHNIQUE: Axial and sagittal imaging planes are utilized for T1 and T2-weighted scans. Sequences include spin-echo, fast spin echo, FLAIR, and diffusion weighted sequences. MRI FINDINGS: There is mucosal thickening and some fluid in the maxillary sinuses bilaterally. Mucosal thickening is seen in the ethmoid air cells and the left frontal sinus as well. These changes are more pronounced than on the 2013 prior study and consistent with paranasal sinusitis. No intraorbital abnormality is seen. No bony calvarial lesion is seen. There is mild to moderate generalized cerebral atrophy. Concordant ventricular enlargement is seen. Ventricular size is unchanged when compared with the 2013 prior study. No extra-axial fluid collection is seen. No mass, infarct, or midline shift is observed. No evidence of intracranial hemorrhage is seen. Diffusion-weighted scans show no evidence to suggest acute ischemia. IMPRESSION: Diffuse mild to moderate atrophy and concordant ventricular enlargement essentially unchanged from the November 27, 2013 prior study. Signed by Sarkis Dejesus MD 03/07/2017 03:24 P
== END ==
LOC: M RAD 13:37
PROVIDERS: ATTEND Neurological Surgery
DX: G91.9 Hydrocephalus, unspecified (principal)

== ENCOUNTER 2017-04-05 15:08 | Emergency (ER) | payer MEDICARE ==
[~2017-04-05] VITALS: Ht 154.9 cm; Wt 59.1 kg
[2017-04-05] MEDS ORDERED: NORCO, ANEXSIA 5/325MG TABLET (HYDROcodone/ACETAMINOPHEN) PO ONE (15:30)
[2017-04-05] MEDS ORDERED: ABIL10TA9 (15:32)
[2017-04-05] MEDS ORDERED: LOVA40TA (15:32)
[2017-04-05] MEDS ORDERED: NATU400T PO (15:32)
[2017-04-05] MEDS ORDERED: SPIR100T (15:32)
[2017-04-05] MEDS ORDERED: SYNT88TA2 (15:32)
[2017-04-05] MEDS ORDERED: LORA0.5T11 (15:32)
[2017-04-05] MEDS ORDERED: BREO1INH (15:32)
[2017-04-05] MEDS ORDERED: MONT10TA2 (15:32)
[2017-04-05] MEDS ORDERED: FLUO20CA19 (15:32)
[2017-04-05] MEDS ORDERED: PRIM50TA6 (15:32)
[2017-04-05] MEDS ORDERED: OMEP20CA3 (15:32)
[2017-04-05] MEDS ORDERED: MULTLIQ7 PO (15:34)
[2017-04-05] MEDS ORDERED: CALTCHW4 PO (15:34)
[2017-04-05] MEDS ORDERED: PROBCAP4 PO (15:34)
[2017-04-05] MEDS ORDERED: ROPI0.5T (15:34)
[2017-04-05] MEDS ORDERED: SENO8.6T5 PO (15:34)
--- NOTE | 2017-04-05 16:17 | REP ---
Right tibia-fibula four views : There is no fracture or dislocation. Mineralization and joint spaces are normal. There are no calcifications or foreign bodies. Impression: Negative right tibia-fibula . Signed by Antoni Argueta MD 04/05/2017 04:08 P
--- NOTE | 2017-04-05 16:23 | REP ---
Right knee five views: There are no comparisons. There is small osteophytic formation at the medial lateral joint lines. There is demineralization. There is small osteophyte formation of the patellofemoral compartment. No joint effusion. No calcifications or foreign bodies. No fracture or dislocation. Impression: There is mild tricompartment osteoarthritis. Otherwise, negative right knee. Signed by Antoni Argueta MD 04/05/2017 04:15 P
--- NOTE | 2017-04-05 16:25 | REP ---
REASON: Trauma. PRIORS: 10/16/2016 which showed chronic changes and paranasal sinus disease. The ventricles and sulci are unchanged. No extra-axial fluid collections have developed. There is no shift in midline structures. Ventricular prominence is noted status quo. Slightly more than one would normally expect for the degree of sulcal prominence. There is no evidence of an acute intracranial hemorrhagic or nonhemorrhagic event. There is no change in the deep white matter. There is no change in the posterior fossa. Once again, there are abnormal paranasal sinus soft-tissue densities with bilateral air fluid levels worsened on the left and improved on the right. In addition, increase density is seen with an air fluid level in the sphenoid sinuses. IMPRESSION: 1. Chronic stable appearing brain changes consistent with atrophy. NPH can not be ruled out. There is no CT evidence of transependymal flow. 2. Pansinusitis as described above. Correlate clinically. 3. Other findings as described above. Signed by Aquilino Shah DO 04/05/2017 04:44 P
--- NOTE | 2017-04-05 16:28 | REP ---
REASON: Trauma. COMPARISON: 10/16/2016. There is no evidence of change compared to prior exam. Vertebral body height and alignment is unchanged and within normal limits. Disc spaces are again seen to be narrowed posteriorly status quo. The facet joints are again seen to be well aligned bilaterally. Hypertrophic degenerative facet and uncovertebral joint changes are again seen to be present at every level bilaterally status quo. There is no evidence of an acute c-spine fracture. IMPRESSION: Stable chronic changes without evidence of an acute fracture. Signed by Aquilino Shah DO 04/05/2017 04:44 P
--- NOTE | 2017-04-05 16:46 | REP ---
REASON: Trauma, assess for fracture. COMPARISON: None. There is no acute maxillofacial fracture. There is ward paranasal mucosal thickening with some air fluid levels. There is complete obstruction of the osteomeatal complex bilaterally due to the abnormal soft-tissue density. The hiatus semilunaris is indistinct bilaterally. There is a Agustin's cell on the right The [place] liz and cribriform plate are intact. IMPRESSION:1. No acute fracture. 2. Ward paranasal sinus changes with some acute findings consistent with active sinusitis. There are air fluid levels. 3. Other chronic changes as described above. Signed by Aquilino Shah DO 04/06/2017 10:50 A
[2017-04-05 16:54] VITALS: BP 136/78
--- NOTE | 2017-04-06 08:58 | ED PDOC ---
Post-Departure Follow-Up radiology report faxed to Marina Maher MD Apr 06, 2017 08:58
== END 2017-04-05 16:56 | disposition home or self-care (01) ==
LOC: M ED 15:08
DX: T14.8 Other injury of unspecified body region (principal); W01.198A Fall on same level from slipping, tripping and stumbling with subsequent striking against other object, initial encounter; Y92.89 Other specified places as the place of occurrence of the external cause; Y93.89 Activity, other specified; Y99.8 Other external cause status; I10 Essential (primary) hypertension; E78.9 Disorder of lipoprotein metabolism, unspecified; E07.9 Disorder of thyroid, unspecified; J45.909 Unspecified asthma, uncomplicated; K21.9 Gastro-esophageal reflux disease without esophagitis; F41.9 Anxiety disorder, unspecified; F32.9 Major depressive disorder, single episode, unspecified; Z88.8 Allergy status to other drugs, medicaments and biological substances; Z79.899 Other long term (current) drug therapy

== ENCOUNTER 2017-06-26 19:23 | Emergency (ER) | payer MEDICARE, OTHER ==
[~2017-06-26] VITALS: Ht 152.4 cm; Wt 63.6 kg
[~2017-06-26 19:23] MED LIST changes: -PERC5TAB12 PO; -ZOFR4TAB3 PO
[2017-06-26 20:26] LABS: BASO % 0.2 % (0.0-1.0); EOS # 0.3 10^3/uL (0.0-0.50); EOS % 2.9 % (0.0-3.0); IMMATURE GRANULOCYTE % 0.4 % (0-0); LYMPH % 19.8 % (24.0-44.0); MEAN CORPUSCULAR HGB CONC 33.4 g/dl (32.0-36.5); MEAN CORPUSCULAR VOLUME 89.7 fl (80.0-96.0); MONO # 0.7 10^3/uL (0.0-0.8); MONO % 6.8 % (0.0-5.0); NEUTROPHILS # 7.1 10^3/uL (1.8-7.7); NEUTROPHILS % 69.9 % (36.0-66.0); PLATELET COUNT, AUTOMATED 281 10^3/uL (150-450); WHITE BLOOD COUNT 10.1 10^3/uL (4.0-10.0)
[2017-06-26 20:42] LABS: INR 1.04
[2017-06-26 21:01] LABS: ALBUMIN 3.5 GM/DL (3.2-5.2); ALBUMIN/GLOBULIN RATIO 1.03 (1.00-1.93); ALKALINE PHOSPHATASE 100 U/L (45-117); ALT/SGPT 24 U/L (12-78); ANION GAP 5 MEQ/L (8-16); AST/SGOT 22 U/L (15-37); BILIRUBIN,DIRECT < 0.1 MG/DL (0.0-0.2); BILIRUBIN,TOTAL 0.3 MG/DL (0.2-1.0); BLOOD UREA NITROGEN 25 MG/DL (7-18); CALCIUM LEVEL 8.8 MG/DL (8.8-10.2); CARBON DIOXIDE LEVEL 29 MEQ/L (21-32); CHLORIDE LEVEL 95 MEQ/L (98-107); CREATININE FOR GFR 0.77 MG/DL (0.55-1.02); GLOMERULAR FILTRATION RATE > 60.0 (>39); GLUCOSE, FASTING 86 MG/DL (83-110); POTASSIUM SERUM 4.9 MEQ/L (3.5-5.1); SODIUM LEVEL 129 MEQ/L (136-145); TOTAL PROTEIN 6.9 GM/DL (6.4-8.2)
[2017-06-26] MEDS ORDERED: ISOVUE-370 76% 100ML VIAL (Q9967) As Ordered ONE (21:15)
--- NOTE | 2017-06-26 22:20 | REPUSA ---
CT of the chest Clinical statement: Chest pain, trauma. Technique: Multiple axial CT images were obtained from the thoracic inlet through the upper abdomen a fter a bolus administration of nonionic intravenous contrast. Coronal and sagittal reconstructions we re also obtained. No comparison is available. Findings: The pulmonary arteries are well-opacified with contrast, with no intraluminal filling defec ts to suggest embolism. The thoracic aorta is unremarkable. Thyroid gland is within normal limits. Th ere is no thoracic lymphadenopathy. There are no pericardial or pleural effusions. There is minimal a telectasis at the lung bases bilaterally. Limited imaging of the upper abdomen is unremarkable. There are no suspicious osseous lesions. Exaggerated kyphosis of the thoracic spine is noted. Impression: 1. No acute traumatic injury. 2. Minimal atelectasis at the lung bases bilaterally. 3. The pulmonary arteries and thoracic aorta are grossly unremarkable.
--- NOTE | 2017-06-26 22:20 | REPUSA ---
CT of the head Clinical history: trauma. Comparison: 10/16/2016. Protocol: Multiple axial CT images obtained with 5 mm slice thickness were obtained through the head without administration of contrast. Findings: The ventricles and sulci are symmetric but prominent in size bilaterally. There are periven tricular areas of low attenuation throughout the deep white matter. There is no evidence of acute hem orrhage or infarct. There is no midline shift, mass effect, or extra-axial fluid collection. The osse ous structures are unremarkable. The mastoid air cells are clear. There is diffuse fluid and mucosal thickening throughout the ethmoid and maxillary sinuses bilaterally. Impression: 1. No acute hemorrhage or infarct. Findings are consistent with moderately severe stable age-related atrophy and chronic small vessel ischemic disease. 2. Worsening sinusitis since the prior study.
--- NOTE | 2017-06-26 22:20 | REPUSA ---
CT of the cervical spine Clinical history: Pain. Trauma. Technique: Multiple axial CT images were obtained through the cervical spine without administration o f contrast. Coronal and sagittal 3-D reconstructed images were also obtained. Comparison: 10/16/2016. Findings: The cervical vertebral bodies are in satisfactory positioning and alignment. No fractures or dislocat ions are demonstrated. The odontoid process is intact. Intervertebral disc spaces are well-maintained . There is no evidence of facet subluxation. Mild facet degenerative changes are seen bilaterally. Th e neural foramen appear grossly patent. The cervical cranial junction is intact. The cervical spinal canal demonstrates normal caliber and contour without evidence of spinal stenosis. The surrounding so ft tissues are within normal limits. Impression: No acute fracture or traumatic injury. Mild cervical spondylosis, grossly stable.
--- NOTE | 2017-06-26 22:30 | REPUSA ---
CT of the abdomen and pelvis with contrast Clinical statement: trauma. Technique: Multiple axial CT images were obtained from the base of the lungs through the floor of the pelvis utilizing 5 mm axial slices after administration of oral and nonionic intravenous contrast. C oronal and sagittal reconstructions were also obtained. No comparison is available. Findings: Chest: The visualized lung bases demonstrate minimal atelectasis bilaterally. Abdomen: The liver, spleen, pancreas, kidneys, and adrenal glands are unremarkable. There is a 7 mm g allstone in the neck of the gallbladder. No pericholecystic inflammatory changes are seen. There is n o evidence of biliary ductal dilatation. There is a 3.5 cm simple cyst in the superior lateral right kidney. There is a 4.2 cm simple cyst in the inferior posterior right kidney. Smaller cysts are seen in the left kidney. The aorta is within normal limits. There is no evidence of abdominal lymphadenopa thy or ascites. Pelvis: The bowel is unremarkable, with no obstructive or inflammatory changes. The urinary bladder i s within normal limits. The other pelvic structures appear grossly intact. There is no evidence of pe lvic lymphadenopathy or ascites. Bones: There are no suspicious osseous abnormalities seen. Severe degenerative disc disease is seen a t L5/S1. Impression: 1. No acute traumatic injury. 2. Bilateral simple renal cysts. 3. Cholelithiasis, without evidence of acute cholecystitis. 4. No obstructive or inflammatory bowel changes. 5. Severe degenerative disc disease at L5/S1. No acute fractures. 6. Minimal atelectasis in the lung bases bilaterally.
[2017-06-26] MEDS ORDERED: PERC5TAB12 PO (22:45)
[2017-06-26] MEDS ORDERED: PERCOCET 5MG/325MG TAB PO ONE (22:45)
[2017-06-26] MEDS ORDERED: ONDANSETRON 4MG/2ML VIAL (J2405) IV ONE (22:45)
[2017-06-26] MEDS ORDERED: ZOFR4TAB3 PO (22:46)
[2017-06-26 23:09] VITALS: BP 148/82
--- NOTE | 2017-06-27 01:41 | REP ---
clinical: Trauma . Comparison: 10/16/2016 . Findings: The mediastinum and cardiac silhouette are stable and within normal limits for portable technique. The lung ortega are clear without acute consolidation, effusion, or pneumothorax. Skeletal structures are intact. Impression: No acute cardiopulmonary process appreciated. Signed by Tyrone Sánchez MD 06/27/2017 01:32 A
--- NOTE | 2017-06-27 08:26 | ECGEPIP ---
Stationary ECG Study [facility] - ED Test Date: 2017-06-26 Pat Name: DIANELYS DUEÑAS Department: Room: - Gender: F Residential Manager: : 1940 Requested By: EAMON Enrique Order Number: [id number] Reading MD: Marina Maher Measurements Intervals [place] Rate: 71 P: 61 FL: 191 QRS: -10 QRSD: 86 T: 44 QT: 402 QTc: 437 Interpretive Statements SINUS RHYTHM DELAYED R PROGRESSION NO PRIOR FOR COMPARISON Electronically Signed On 06-27-2017 8:26:17 EDT by Marina Maher
== END 2017-06-26 23:13 | disposition home or self-care (01) ==
LOC: M ED 19:23
DX: Z04.1 Encounter for examination and observation following transport accident (principal); R07.9 Chest pain, unspecified; M54.2 Cervicalgia; I10 Essential (primary) hypertension; E03.9 Hypothyroidism, unspecified; F41.9 Anxiety disorder, unspecified; F33.9 Major depressive disorder, recurrent, unspecified; Z79.899 Other long term (current) drug therapy; Z88.8 Allergy status to other drugs, medicaments and biological substances
CPT/HCPCS: 70450; 71010; 71260; 72125; 74177; 80048; 80076; 83690; 85025; 85610; 85730; 93005; 93041; 94760; 96374; 99285; J2405; Q9967

== ENCOUNTER 2017-12-03 17:13 | Emergency (ER) | payer MEDICARE, OTHER ==
[2017-12-03] MEDS: MORPHINE 4 MG/ML 1ML VIAL (J2270) IV ×2 (17:50→18:23)
[2017-12-03] MEDS: ONDANSETRON 4MG/2ML VIAL (J2405) IV (17:50)
[2017-12-03] MEDS: NS 1,000 ML IV (18:19)
[2017-12-03] MEDS: PROPOFOL 200 MG/20 ML VIAL IV ×2 (18:27→18:33)
== END 2017-12-03 20:41 | disposition home or self-care (01) ==
LOC: M ED 17:13
DX: S42.255A Nondisplaced fracture of greater tuberosity of left humerus, initial encounter for closed fracture (principal); S43.015A Anterior dislocation of left humerus, initial encounter; S43.035A Inferior dislocation of left humerus, initial encounter; M85.812 Other specified disorders of bone density and structure, left shoulder; M85.861 Other specified disorders of bone density and structure, right lower leg; M17.11 Unilateral primary osteoarthritis, right knee; W01.0XXA Fall on same level from slipping, tripping and stumbling without subsequent striking against object, initial encounter; Y92.098 Other place in other non-institutional residence as the place of occurrence of the external cause; R26.89 Other abnormalities of gait and mobility; F41.9 Anxiety disorder, unspecified; Z88.8 Allergy status to other drugs, medicaments and biological substances; Z79.899 Other long term (current) drug therapy
CPT/HCPCS: J2270

== ENCOUNTER → 2018-10-28 | Outpatient (CLI) | payer MEDICARE ==
[~2018-10-28] MED LIST changes: +BACIOIN7 TOP; +METHACHOLINE KIT (J7674) INH ONE; +PERC5TAB12 PO; -SPIR100T; +SPIR100T3; +ZOFR4TAB14 PO
--- NOTE | 2018-10-28 14:17 | PFTRPT ---
Height: 61.00 Inches Weight: 160.00 Lbs BSA: 1.72 Diagnosis: Asthma DATE OF PROCEDURE: 10/28/2018 ORDERED BY: Dr. Fernandez INTERPRETATION: Methacholine challenge was ordered but, due to FEV1 criteria, patient was unable to have the study performed. Pre and post bronchodilator study was, therefore, done. Spirometry: Excellent technical quality. Forced vital capacity reduced. FEV1 generally in proportion. Obstructive index is, therefore, normal. Flow Volume Loop: Expiratory limb of the flow volume loop does suggest some nonspecific limitation. Only borderline bronchodilator response at 11% in the FEV1 was noted. IMPRESSION: Nonspecific limitation with only borderline bronchodilator response. Please correlate clinically. MTDD
== END ==
LOC: M CARPUL 12:49
PROVIDERS: ATTEND Internal Medicine
DX: J45.40 Moderate persistent asthma, uncomplicated (principal)

== ENCOUNTER → 2019-02-10 | Outpatient (CLI) | payer MEDICARE ==
[~2019-02-10] MED LIST changes: -METHACHOLINE KIT (J7674) INH ONE
--- NOTE | 2019-02-10 17:01 | REP ---
REASON FOR EXAM: Followup parenchymal fibrotic changes. COMPARISON EXAMINATION: 04/23/2018 and 12/25/2016. The lack of intravenous contrast decreases the sensitivity of the exam. There is no significant change in the appearance of the mediastinum or pulmonary barrett. No mass or adenopathy has developed. There are no pleural or pericardial effusions. The imaged upper abdomen is unchanged. There are bilateral renal cysts status quo. The imaged osseous structures are essentially changed consistent with the patient's age of 79 years. Evaluation of the lung ortega shows biapical pleural parenchymal scarring and bibasilar asymmetric densities consistent with chronic fibrotic changes status quo. There is mild cylindrical bronchiectasis which has increased from the prior exam. There are no abnormal nodules, masses, or opacities. Limited evaluation of the aortic root shows a maximal AP dimension of 4.1 centimeters which has increased slightly from the prior exam when it measured 4 cm but difficult to evaluate without intravenous contrast and within normal limits for the patient's age. IMPRESSION: 1. Chronic and stable appearing fibrotic changes as described above. 2. Cylindrical bronchiectasis increased slightly from the prior exam. 3. Bilateral renal cysts. 4. Aortic root measurement as described above, correlate clinically and if necessary obtain a contrast enhanced exam. Electronically Signed by Aquilino Shah DO 02/10/2019 05:41 P
== END ==
LOC: M RAD 14:58
PROVIDERS: ATTEND Physician Assistant
DX: R91.8 Other nonspecific abnormal finding of lung field (principal); J84.10 Pulmonary fibrosis, unspecified; J47.9 Bronchiectasis, uncomplicated; N28.1 Cyst of kidney, acquired

== ENCOUNTER → 2019-02-11 | Outpatient (CLI) | payer MEDICARE ==
[~2019-02-11] MED LIST changes: +METHACHOLINE KIT (J7674) INH ONE
--- NOTE | 2019-02-11 15:43 | PFTRPT ---
Site: [facility], [address] [place] [address], [id number] ID: [id number] Name: DIANELYS DUEÑAS Visit Date: 02/11/2019 Second ID: [id number] Referring Doctor: SUZANNE Lozada Marcus, M Reviewing Doctor: Omi Ayala MD Project Scheduler: Enrico YORK, JOSÉ MIGUEL Age: 79 : 1940 Sex: Female Race: Height: 59.00 Inches Weight: 158.00 Lbs BSA: 1.67 Order IDs: [id number] Requested Test(s): <RESP-PFT.PFT B/A> Diagnosis: R06.00 test appear to be valid, although the ATS standards for three acceptable maneuvers were not met. Review Status: Not Reviewed Pre-Bronch Post-Bronch Pred Actual %Pred Actual %Chng SPIROMETRY FVC (L) 2.10 1.61 76 1.53 -4 FEV1 (L) 1.55 1.26 81 1.24 -1 FEV1/FVC (%) 74 78 105 81 3 FEF 25% (L/sec) 4.02 3.24 80 2.67 -17 FEF 50% (L/sec) 3.11 2.10 67 2.05 -2 FEF 75% (L/sec) 0.79 0.62 77 0.36 -41 FEF 25-75% (L/sec) 1.23 1.08 87 1.19 9 FEF Max (L/sec) 4.24 3.64 85 3.36 -7 FIVC (L) 1.63 1.39 -14 FIF 50% (L/sec) 3.01 2.29 75 2.11 -7 FIF Max (L/sec) 2.34 2.18 -6 MVV (L/min) 71 30 41 Expiratory Time (sec) 6.76 4.11 -39 Back Extrap Vol (L) 0.07 0.12 61 Time To FEFmax (sec) 0.127 0.185 45 LUNG VOLUMES SVC (L) 2.20 1.69 76 IC (L) 1.85 1.35 73 ERV (L) 0.35 0.34 96 TGV (L) 2.45 2.21 90 RV (Pleth) (L) 2.10 1.87 88 TLC (Pleth) (L) 4.30 3.56 82 RV/TLC (Pleth) (%) 47 52 111 DIFFUSION DLCOunc (ml/min/mmHg) 17.59 8.47 48 DLCOcor (ml/min/mmHg) 17.59 8.97 51 DL/VA (ml/min/mmHg/L) 4.09 3.49 85 VA (L) 4.30 2.57 59 BHT (sec) 9.52 IVC (L) 1.27 TLC (SB) (L) 2.72 AIRWAYS RESISTANCE Raw (cmH2O/L/s) 1.86 1.65 88 Gaw (L/s/cmH2O) 1.03 0.61 59 sRaw (cmH2O*s) 4.76 4.02 84 sGaw (1/cmH2O*s) 0.20 0.25 124 BLOOD GASES Hgb (gm/dL) 11.7
== END ==
LOC: M CARPUL 12:28
PROVIDERS: ATTEND Physician Assistant
DX: R06.00 Dyspnea, unspecified (principal)

== ENCOUNTER 2019-10-30 15:00 | Outpatient (RCR) | payer MEDICARE ==
[~2019-10-30 15:00] MED LIST changes: -FLUO20CA19; +FLUO20CA22; -LORA0.5T11; +LORA0.5T5; -METHACHOLINE KIT (J7674) INH ONE; -MONT10TA2; +MONT10TA4; +OMEP1CAP73; -OMEP20CA3; -ROPI0.5T; +ROPI0.5T3
== END 2019-11-08 ==
LOC: M ST 15:00
PROVIDERS: ATTEND Internal Medicine
DX: R13.10 Dysphagia, unspecified (principal)

== ENCOUNTER → 2020-04-08 | Outpatient (REF) | payer MEDICARE ==
[2020-05-22 10:58] LABS: Alkaline Phosphatase Iso-Bone SEE SEPARATE REPORT; Alkaline Phosphatase Iso-Intes SEE SEPARATE REPORT; Alkaline Phosphatase Iso-Liver SEE SEPARATE REPORT; TOTAL ALK PHOS SEE SEPARATE REPORT
== END ==
LOC: M LAB REF 14:01
PROVIDERS: ATTEND Internal Medicine
DX: R79.89 Other specified abnormal findings of blood chemistry (principal)

== ENCOUNTER → 2020-09-02 | Outpatient (CLI) | payer MEDICARE ==
[~2020-09-02] MED LIST changes: -MONT10TA4; +MONT5TAB2
== END ==
LOC: M LABSMTC 12:27
PROVIDERS: ATTEND Family Medicine
DX: Z20.828 Contact with and (suspected) exposure to other viral communicable diseases (principal)

== ENCOUNTER → 2023-07-26 | Outpatient (CLI) | payer OTHER ==
[~2023-07-26] MED LIST changes: +CARB25TA PO; +CEFD300C42 PO; +LEVOTAB10; +MELO15TA28; +MONT10TA97; -MONT5TAB2; -ROPI0.5T3; +ROPI0.5T33; +ZITHTAB PO
== END ==
LOC: M WUC 13:53
PROVIDERS: ATTEND Internal Medicine
DX: J18.1 Lobar pneumonia, unspecified organism (principal)

== ENCOUNTER → 2024-05-01 | Outpatient (CLI) | payer OTHER ==
[~2024-05-01] MED LIST changes: +CEFD1CAP9 PO; -CEFD300C42 PO; +FLUO-365; -FLUO20CA22
== END ==
LOC: M RAD 11:43
PROVIDERS: ATTEND Internal Medicine
DX: R06.00 Dyspnea, unspecified (principal)